=== PATIENT | male | born 1975 | race African-American/Black ===

== ENCOUNTER 2016-04-01 10:13 | Emergency (ER) | payer BC | END 2016-04-01 15:04 | disposition home or self-care (01) | LOC: D.ER 10:13 | DX: H66.41 Suppurative otitis media, unspecified, right ear (principal); I10 Essential (primary) hypertension ==

== ENCOUNTER 2016-11-25 17:35 | Emergency (ER) | payer BC | END 2016-11-25 20:05 | disposition home or self-care (01) | LOC: D.ER 17:35 | DX: H66.91 Otitis media, unspecified, right ear (principal); I10 Essential (primary) hypertension ==